=== PATIENT | female | born 1965 | race African-American/Black ===

== ENCOUNTER 2018-10-11 13:17 | Observation (INO) | payer OTHER ==
[2018-10-11 14:39] LABS: #Basophils 0.1 thou/uL (0.0-0.2); #Eosinphils 0.1 thou/uL (0.0-0.7); #Lymphocytes 3.2 thou/uL (1.20-3.40); #Monocytes 0.7 thou/uL (0.11-0.59); #Neutrophils 3.3 thou/uL (1.40-6.50); %Eosinophils 1.2 % (0.0-10.0); %Lymphocytes 43.1 % (21.0-51.0); %Monocytes 9.7 % (0.0-10.0); Hemoglobin 13.6 g/dL (12.0-16.0); Mean Corpuscular HGB CONC 32.7 g/dL (32.0-36.0); Mean Corpuscular Hemoglobin 30.9 pg (27.0-31.0); Mean Corpuscular Volume 94.6 fL (78.0-98.0); Mean Platelet Volume 9.2 fL (7.4-10.4); Platelet Count 201 thou/uL (130-400); RBC Distribution Width 12.9 % (11.5-14.5); Red Blood Cell (RBC) Count 4.41 mill/uL (4.20-5.40); White Blood Cell (WBC) Count 7.3 thou/uL (4.8-10.8)
[2018-10-11 15:01] LABS: ALT (SGPT) 14 U/L (8-55); AST (SGOT) 16 U/L (5-34); Albumin 4.2 g/dL (3.5-5.0); Alkaline Phosphatase 95 U/L (40-150); Anion Gap 11 mmol/L (10-20); BUN (Urea Nitrogen) 20 mg/dL (9.8-20.1); Bilirubin, Total 0.4 mg/dL (0.2-1.2); CK (CPK) 75 U/L (29-168); Calc. Creatinine Clearance 0 mL/min (70-130); Calcium 9.2 mg/dL (7.8-10.44); Carbon Dioxide 24 mmol/L (22-29); Chloride 110 mmol/L (98-107); Estimated GFR-MDRD 62; Globulin 2.8 g/dL (2.4-3.5); Glucose 94 mg/dL (70-105); Potassium 4.3 mmol/L (3.5-5.1); Sodium 141 mmol/L (136-145)
--- NOTE | 2018-10-11 15:04 | RAD ---
PORTABLE CHEST: Date: 10/11/18 HISTORY: Chest pain, shortness of breath. FINDINGS: Lung jimenez appear clear. Heart and mediastinum unremarkable. Vascular markings normal. IMPRESSION: No acute findings. POS: TPC
[2018-10-11] MEDS ORDERED: Nitroglycerin 0.4 MG TAB 1 EACH ONE (15:48)
[2018-10-11] MEDS ORDERED: Morphine 4 MG/ML VIAL ONE ×2 (16:34→17:59)
[2018-10-11] MEDS ORDERED: Morphine 2 MG/ML SYRINGE ONE (18:02)
[2018-10-11 18:25] LABS: Troponin I Less than 0.010 ng/mL (< 0.028)
[2018-10-11 19:23] VITALS: BMI 26.2
[2018-10-11] MEDS ORDERED: Acetaminophen 325 MG TAB PO SCH (19:45)
[2018-10-11] MEDS ORDERED: Acetaminophen 325 MG TAB PO PRN (20:15)
[2018-10-11] MEDS ORDERED: Nitroglycerin 0.4 MG TAB (25 Tab Bottle) PO PRN (20:15)
[2018-10-11] MEDS: HYDROcodone/Acetaminophen 10/325 mg Tablet PO PRN (20:45)
[2018-10-11] MEDS: Famotidine 20 MG TAB PO SCH (20:46)
[2018-10-11] MEDS: Pregabalin 75 MG CAP PO SCH (20:46)
[2018-10-11] MEDS: cloNIDine 0.1 MG TAB PO SCH (20:46)
[2018-10-11] MEDS: carBAMazepine 200 MG TAB PO SCH (20:47)
[2018-10-11] MEDS: Lisinopril 20 MG TAB PO SCH (20:47)
[2018-10-11] MEDS: Metoprolol Tartrate 100 MG TAB PO SCH (21:44)
[2018-10-11] MEDS: Ondansetron PF 4 MG/2 ML Vial IVP PRN (21:44)
[2018-10-11 21:58] LABS: Troponin I Less than 0.010 ng/mL (< 0.028)
[2018-10-11] MEDS ORDERED: Melatonin 3 MG TAB PO PRN (22:16)
[2018-10-12 01:02] LABS: Amphetamine Not Detected (NotDetected); Barbiturates Screen Not Detected (NotDetected); Benzodiazepine Screen Not Detected (NotDetected); Cocaine Metabolite Screen Not Detected (NotDetected); Medtox Reader # READER 4; Methadone Not Detected (NotDetected); Methamphetamine Not Detected (NotDetected); Opiate Screen Detected (NotDetected); Oxycodone Screen Not Detected (NotDetected); Phencyclidine (PCP) Not Detected (NotDetected); THC/Cannabinoid Screen Detected (NotDetected); Tricyclic Screen Not Detected (NotDetected)
[2018-10-12 01:03] LABS: Medtox Control Line Valid? VALID (VALID)
[2018-10-12] MEDS: Ondansetron PF 4 MG/2 ML Vial IVP PRN (03:37)
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
[2018-10-12] MEDS: HYDROcodone/Acetaminophen 10/325 mg Tablet PO PRN ×2 (05:25→12:48)
[2018-10-12] MEDS: Ondansetron ODT 4 MG TAB PO PRN ×2 (05:39→12:48)
[2018-10-12 06:21] LABS: #Basophils 0.1 thou/uL (0.0-0.2); #Eosinphils 0.1 thou/uL (0.0-0.7); #Lymphocytes 2.3 thou/uL (1.20-3.40); #Monocytes 0.5 thou/uL (0.11-0.59); #Neutrophils 3.4 thou/uL (1.40-6.50); %Basophils 1.5 % (0.0-1.0); %Eosinophils 1.4 % (0.0-10.0); %Lymphocytes 36.5 % (21.0-51.0); %Monocytes 7.4 % (0.0-10.0); %Neutrophils 53.2 % (42.0-75.0); Mean Corpuscular HGB CONC 32.2 g/dL (32.0-36.0); Mean Corpuscular Volume 96.1 fL (78.0-98.0); Mean Platelet Volume 8.9 fL (7.4-10.4); Platelet Count 188 thou/uL (130-400); Red Blood Cell (RBC) Count 4.51 mill/uL (4.20-5.40); White Blood Cell (WBC) Count 6.3 thou/uL (4.8-10.8)
[2018-10-12 06:36] LABS: Anion Gap 9 mmol/L (10-20); BUN (Urea Nitrogen) 17 mg/dL (9.8-20.1); Calc. Creatinine Clearance 85 mL/min (70-130); Calcium 9.4 mg/dL (7.8-10.44); Carbon Dioxide 25 mmol/L (22-29); Cardiac Risk 5.4 (Less than 4.5); Chloride 108 mmol/L (98-107); Cholesterol 212 mg/dl (< 200 Desired); Estimated GFR-MDRD 85; Glucose 90 mg/dL (70-105); HDL Cholesterol 39 mg/dL (>60 Neg Risk); LDL Cholesterol, Calculated 140 mg/dL; Potassium 4.2 mmol/L (3.5-5.1); Sodium 138 mmol/L (136-145); Triglycerides 166 mg/dL (Less than 150)
[2018-10-12] MEDS ORDERED: Enoxaparin Sodium 40 MG/0.4 ML SYRINGE SC SCH (09:00)
[2018-10-12 11:52] VITALS: TEMP 97.2
[2018-10-12] MEDS: cloNIDine 0.1 MG TAB PO SCH (11:53)
[2018-10-12] MEDS: carBAMazepine 200 MG TAB PO SCH (11:54)
[2018-10-12] MEDS: Famotidine 20 MG TAB PO SCH (11:54)
[2018-10-12] MEDS: Pregabalin 75 MG CAP PO SCH (11:55)
[2018-10-12] MEDS: Metoprolol Tartrate 100 MG TAB PO SCH (11:55)
[2018-10-12] MEDS: Lisinopril 20 MG TAB PO SCH (11:55)
--- NOTE | 2018-10-12 12:09 | NM ---
EXAM: CARDIAC SPECT HISTORY: Chest pain TECHNIQUE: A myocardial perfusion scan was performed using the single isotope 1 day protocol with carol ann hnetium 99m sestamibi. [10 mCi] was injected intravenously for the rest exam followed by 30 mCi for the stress study. Exercise stress was monitored and interpreted by Dr. Kilgore. FINDINGS: Homogeneous tracer distribution is seen in the myocardial segments on stress and rest image s without fixed or reversible defects. Gated SPECT LVEF: 73% Wall motion exam: Normal IMPRESSION: Normal myocardial perfusion scan
[2018-10-12 12:54] VITALS: BP 168/93
[2018-10-12] MEDS ORDERED: Regadenoson 0.4 MG/5 ML SYRINGE ONE (14:03)
--- NOTE | 2018-10-12 14:29 | PDOC.EVN ---
Event Note - Event Note Event Note: Ms. Saeed was seen along with Yessica Crawford PA-C. She was admitted with Chest pain. Stress test was negative. It was noted she has wheezing and rhonchi on exam, I also note the same on my exam. She is also a smoker, and currently has a cough productive of greenish phlem. Agree with antibiotics, and empiric treatment for bronchitis/possible COPD, with A combivent inhaler. She can be discharge with close follow-up and possible outpatient PFT's. She also has jagdish counseled on smoking cessation.
== END 2018-10-12 15:08 | disposition home or self-care (01) ==
LOC: ERS 13:17 → 2SW 19:01
PROVIDERS: ADMIT Internal Medicine; ATTEND Internal Medicine
DX: R07.9 Chest pain, unspecified (principal); I10 Essential (primary) hypertension; G40.909 Epilepsy, unspecified, not intractable, without status epilepticus; K21.9 Gastro-esophageal reflux disease without esophagitis; J40 Bronchitis, not specified as acute or chronic; F32.9 Major depressive disorder, single episode, unspecified; F41.9 Anxiety disorder, unspecified; F17.210 Nicotine dependence, cigarettes, uncomplicated; Z79.899 Other long term (current) drug therapy
CPT/HCPCS: 36415; 71045; 78452; 80048; 80053; 80061; 80306; 82550; 83880; 84484; 85025; 85379; 93005; 93017; 96372; 96374; 96375; 96376; A9500; G0378; J1650; J2270; J2405; J2785; Q0162

== ENCOUNTER 2019-08-21 18:31 | Observation (INO) | payer OTHER ==
[2019-08-21] MEDS ORDERED: Ondansetron PF 4 MG/2 ML Vial ONE ×2 (19:24→20:34)
[2019-08-21] MEDS ORDERED: hydrALAZINE 20 MG/ML VIAL ONE (19:24)
--- NOTE | 2019-08-21 19:58 | RAD ---
PA AND LATERAL OF THE CHEST: 08/21/19 INDICATION: History of seizures, cough and chest pain. COMPARISON: Prior single view of the chest dated 10/11/18. FINDINGS: Lungs are clear. Mild cardiomegaly is stable appearing. No acute osseous abnormality is evident. IMPRESSION: No acute cardiopulmonary abnormality. POS: BH
[2019-08-21] MEDS ORDERED: guaiFENesin/Codeine Phosphate 200 mg/20 mg 10 ml UD Cup PO SCH (20:00)
[2019-08-21 20:19] LABS: ALT (SGPT) 9 U/L (8-55); AST (SGOT) 16 U/L (5-34); Albumin 4.2 g/dL (3.5-5.0); Alkaline Phosphatase 97 U/L (40-110); Anion Gap 14 mmol/L (10-20); BUN (Urea Nitrogen) 8 mg/dL (9.8-20.1); Bilirubin, Total 0.4 mg/dL (0.2-1.2); CK (CPK) 110 U/L (29-168); Calc. Creatinine Clearance 0 mL/min (70-130); Calcium 8.9 mg/dL (7.8-10.44); Carbon Dioxide 22 mmol/L (22-29); Chloride 107 mmol/L (98-107); Estimated GFR-MDRD 76; Globulin 3.3 g/dL (2.4-3.5); Glucose 101 mg/dL (70-105); Potassium 4.3 mmol/L (3.5-5.1); Protein, Total 7.5 g/dL (6.0-8.3); Sodium 139 mmol/L (136-145)
[2019-08-21] MEDS ORDERED: Nitroglycerin 2% Ointment 1 INCH/1 GM Packet ONE (20:26)
[2019-08-21 20:31] LABS: Hemoglobin 13.6 g/dL (12.0-16.0); Mean Corpuscular HGB CONC 33.1 g/dL (32.0-36.0); Mean Corpuscular Hemoglobin 32.1 pg (27.0-31.0); Mean Corpuscular Volume 96.9 fL (78.0-98.0); Mean Platelet Volume 9.8 fL (7.4-10.4); Platelet Count 197 thou/uL (130-400); RBC Distribution Width 12.4 % (11.5-14.5); Red Blood Cell (RBC) Count 4.23 mill/uL (4.20-5.40); White Blood Cell (WBC) Count 8.2 thou/uL (4.8-10.8)
[2019-08-21 20:45] LABS: #Basophils 0.1 thou/uL (0.0-0.2); #Eosinphils 0.1 thou/uL (0.0-0.7); #Lymphocytes 2.8 thou/uL (1.20-3.40); #Monocytes 0.5 thou/uL (0.11-0.59); #Neutrophils 4.8 thou/uL (1.40-6.50); %Basophils 1.4 % (0.0-1.0); %Eosinophils 0.8 % (0.0-10.0); %Lymphocytes 33.6 % (21.0-51.0); %Monocytes 5.8 % (0.0-10.0); %Neutrophils 58.5 % (42.0-75.0)
[2019-08-21] MEDS ORDERED: Acetaminophen 500 MG TAB ONE (21:04)
[2019-08-21] MEDS ORDERED: Promethazine HCl 25 MG/ML VIAL ONE (21:37)
--- NOTE | 2019-08-21 21:40 | CT ---
CT OF THE BRAIN WITHOUT CONTRAST: 08/21/19 INDICATION: History of seizures with headache and nausea. COMPARISON: Prior exam dated 12/13/14. FINDINGS: No acute infarct, hemorrhage, or hydrocephalus is present. Septum pellucidum and third ventricle are midline. Mastoid air cells and paranasal sinuses are clear. IMPRESSION: No acute intracranial abnormality. POS: BH
[2019-08-22 00:05] LABS: Carbamazepine-Tegretol 5.8 ug/mL (4.0-12.0)
--- NOTE | 2019-08-22 00:18 | PDOC.HHP ---
Hospitalist HPI - History of Present Illness Seizures History of Present Illness: Patient with PMH of HTN and seizure disorder presents to ED for evaluation of seizure after stopping her Tegretol for about 3 days. During my assessment she is somewhat somnolent and history is somewhat limited. Tells me that she has been out of her seizure meds for several days and does not have a refill until . She does not recall seizure event. Currently refers headache, generalized body aches/soreness, and left sided rib cage pain. Denies any recent illness or sick contacts. No fever or chills referred. Does mention having mild non productive cough. In the ED she is noted to have elevated BP but states they are currently adjusting her meds (does not recall the names). Initial ED evaluation with no concerning lab findings. CT head is negative. Chest imaging without acute pathology. VS with elevated BP in the 180s systolic. No hypoxia or fever. Hospitalist ROS - Review of Systems Constitutional: reports: weakness, malaise. denies: fever, chills, sweats Eyes: denies: pain, vision change ENT: denies: ear pain, nose pain, nose discharge, nose congestion Respiratory: reports: cough, dry. denies: shortness of breath, SOB with excertion, pleuritic pain, sputum Cardiovascular: reports: chest pain (Clearly reproducible on exam to left rib cage). denies: palpitations, orthopnea, paroxysmal noc. dyspnea Gastrointestinal: denies: nausea, vomiting, abdominal pain, diarrhea Genitourinary: denies: dysuria, frequency, incontinence Musculoskeletal: reports: other (Generalized body aches/soreness) Skin: denies: rash Neurological: reports: weakness, confusion, seizures. denies: numbness, incoordination, change in speech - Exam General Appearance: NAD General - other findings: Somewhat somnolent Eye: PERRL, anicteric sclera ENT: normocephalic atraumatic Neck: supple, no JVD Heart: RRR, no murmur, no gallops Respiratory: CTAB, no wheezes, no rales, no ronchi Gastrointestinal: soft, non-tender, non-distended, normal bowel sounds Extremities: no cyanosis, no clubbing, no edema Extremities - other findings: Reproducible chest pain to left rib cage under breast Skin: normal turgor Neurological: cranial nerve grossly intact Musculoskeletal: normal tone Psychiatric: A&O x 3, oriented to person Hospitalist Results - Labs Result Diagrams: 08/21/19 19:55 08/21/19 19:55 Lab results: WBC 8.2 thou/uL (4.8-10.8) 08/21/19 19:55 Hgb 13.6 g/dL (12.0-16.0) 08/21/19 19:55 Hct 41.0 % (36.0-47.0) 08/21/19 19:55 MCV 96.9 fL (78.0-98.0) 08/21/19 19:55 Plt Count 197 thou/uL (130-400) 08/21/19 19:55 Neutrophils % 58.5 % (42.0-75.0) 08/21/19 19:55 Sodium 139 mmol/L (136-145) 08/21/19 19:55 Potassium 4.3 mmol/L (3.5-5.1) 08/21/19 19:55 Chloride 107 mmol/L (98-107) 08/21/19 19:55 Carbon Dioxide 22 mmol/L (22-29) 08/21/19 19:55 BUN 8 mg/dL (9.8-20.1) L 08/21/19 19:55 Creatinine 0.93 mg/dL (0.6-1.1) 08/21/19 19:55 Glucose 101 mg/dL (70-105) 08/21/19 19:55 Calcium 8.9 mg/dL (7.8-10.44) 08/21/19 19:55 Total Bilirubin 0.4 mg/dL (0.2-1.2) 08/21/19 19:55 AST 16 U/L (5-34) 08/21/19 19:55 ALT 9 U/L (8-55) 08/21/19 19:55 Alkaline Phosphatase 97 U/L (40-110) 08/21/19 19:55 Creatine Kinase 110 U/L (29-168) 08/21/19 19:55 Troponin I Less than 0.010 ng/mL (< 0.028) 08/21/19 19:55 Serum Total Protein 7.5 g/dL (6.0-8.3) 08/21/19 19:55 Albumin 4.2 g/dL (3.5-5.0) 08/21/19 19:55 - Radiology Interpretation CT scan - head Status: image reviewed by me (Negative for acute pathology) Hospitalist H&P A/P - Plan Plan: Problem List 1. Seizure disorder 2. Uncontrolled hypertension 3. Musculoskeletal chest pain Assessment and Plan 1. Seizure disorder - admit for observation - seizure event in setting of stopping medication - will need refill prior to discharge - continue with tegretol - continue with seizure/fall precautions 2. Uncontrolled hypertension - resume home medications - verify meds once med rec completed - IV hydralazine PRN 3. Musculoskeletal chest pain - continue with Tylenol and Percocet PRN - PT/OT DVT PPX: Lovenox FULL CODE
[2019-08-22] MEDS ORDERED: Senokot S 8.6-50 MG TAB PO PRN (01:02)
[2019-08-22] MEDS ORDERED: HYDROcodone/Acetaminophen 5/325 mg Tablet PO PRN (01:02)
[2019-08-22] MEDS ORDERED: Lorazepam 2 MG/ML VIAL SLOW IVP PRN (01:02)
[2019-08-22] MEDS ORDERED: Acetaminophen 325 MG TAB ONE (01:39)
[2019-08-22] MEDS: Acetaminophen 325 MG TAB PO PRN ×2 (01:42→15:19)
[2019-08-22] MEDS ORDERED: HYDROcodone/Acetaminophen 5/325 mg Tablet ONE (04:32)
[2019-08-22 07:49] LABS: #Basophils 0.1 thou/uL (0.0-0.2); #Lymphocytes 2.2 thou/uL (1.20-3.40); #Monocytes 0.4 thou/uL (0.11-0.59); #Neutrophils 5.6 thou/uL (1.40-6.50); %Eosinophils 0.2 % (0.0-10.0); %Lymphocytes 26.4 % (21.0-51.0); %Monocytes 5.3 % (0.0-10.0); %Neutrophils 67.1 % (42.0-75.0); Hemoglobin 12.8 g/dL (12.0-16.0); Mean Corpuscular HGB CONC 32.5 g/dL (32.0-36.0); Mean Corpuscular Hemoglobin 31.5 pg (27.0-31.0); Mean Corpuscular Volume 96.7 fL (78.0-98.0); Mean Platelet Volume 9.5 fL (7.4-10.4); Platelet Count 196 thou/uL (130-400); RBC Distribution Width 12.5 % (11.5-14.5); Red Blood Cell (RBC) Count 4.07 mill/uL (4.20-5.40); White Blood Cell (WBC) Count 8.4 thou/uL (4.8-10.8)
[2019-08-22 08:08] LABS: Anion Gap 13 mmol/L (10-20); BUN (Urea Nitrogen) 7 mg/dL (9.8-20.1); Calc. Creatinine Clearance 0 mL/min (70-130); Calcium 8.9 mg/dL (7.8-10.44); Carbon Dioxide 22 mmol/L (22-29); Chloride 106 mmol/L (98-107); Estimated GFR-MDRD 87; Glucose 107 mg/dL (70-105); Potassium 3.5 mmol/L (3.5-5.1); Sodium 137 mmol/L (136-145)
[2019-08-22] MEDS ORDERED: Ondansetron PF 4 MG/2 ML Vial ONE (08:18)
[2019-08-22] MEDS: Ondansetron PF 4 MG/2 ML Vial IVP PRN ×2 (08:25→15:18)
[2019-08-22] MEDS ORDERED: Metoprolol Tartrate 100 MG TAB PO SCH (09:00)
[2019-08-22] MEDS ORDERED: cloNIDine 0.1 MG TAB PO SCH (09:00)
[2019-08-22] MEDS ORDERED: Lisinopril 20 MG TAB PO SCH (09:00)
[2019-08-22] MEDS ORDERED: carBAMazepine 200 MG TAB PO SCH (09:00)
[2019-08-22] MEDS ORDERED: Enoxaparin Sodium 40 MG/0.4 ML SYRINGE SC SCH (09:00)
[2019-08-22] MEDS ORDERED: Pregabalin 75 MG CAP PO SCH (09:00)
[2019-08-22] MEDS ORDERED: carBAMazepine 100 mg Chewable Tablet PO SCH (11:15)
[2019-08-22] MEDS ORDERED: hydrALAZINE 20 MG/ML VIAL ONE (11:49)
--- NOTE | 2019-08-22 11:52 | CON ---
NEUROLOGY CONSULTATION DATE OF CONSULTATION: 08/22/2019 REASON FOR CONSULTATION: Breakthrough seizure. HISTORY OF PRESENT ILLNESS: Ms. Jessica Saeed is a 54-year-old female with history significant for hypertension and seizure disorder, presented to the emergency room for breakthrough seizure. According to the patient, she ran out of her Tegretol for three days and then ran out of her medications for 3 to 4 days and she does not have a refill till 08/26/2019. The patient has no recollection of the seizures. When she arrived to the emergency room, she does complain of headache, generalized body aches, and left-sided rib pain. There is a concern about chest pain, but the patient denies any recent illness, nausea, vomiting, focal weakness, focal paresthesias, vertigo, headache, but does complain of chest pain. In the emergency room, head CT was done, which was negative. Chest x-ray did not reveal any acute pathology. She does have high blood pressure. REVIEW OF SYSTEMS: All 14 systems were reviewed and were negative except the negative and positive as mentioned in the HPI. PAST MEDICAL HISTORY: Hypertension, seizure disorder. PAST SURGICAL HISTORY: None. SOCIAL HISTORY: The patient lives at home. Denies smoking, alcohol, or illegal drug use. FAMILY HISTORY: No family history of seizures. ALLERGIES: No known drug allergies Hospitalist ROS - Review of Systems Constitutional: reports: weakness, malaise. denies: fever, chills, sweats Eyes: denies: pain, vision change ENT: denies: ear pain, nose pain, nose discharge, nose congestion Respiratory: reports: cough, dry. denies: shortness of breath, SOB with excertion, pleuritic pain, sputum Cardiovascular: reports: chest pain (Clearly reproducible on exam to left rib cage). denies: palpitations, orthopnea, paroxysmal noc. dyspnea Gastrointestinal: denies: nausea, vomiting, abdominal pain, diarrhea Genitourinary: denies: dysuria, frequency, incontinence Musculoskeletal: reports: other (Generalized body aches/soreness) Skin: denies: rash Neurological: reports: weakness, confusion, seizures. denies: numbness, incoordination, change in speech -Physical Exam General Appearance: NAD General - other findings: Somewhat somnolent Eye: PERRL, anicteric sclera ENT: normocephalic atraumatic Neck: supple, no JVD Heart: RRR, no murmur, no gallops Respiratory: CTAB, no wheezes, no rales, no ronchi Gastrointestinal: soft, non-tender, non-distended, normal bowel sounds Extremities: no cyanosis, no clubbing, no edema Extremities - other findings: Reproducible chest pain to left rib cage under breast Skin: normal turgor Neurological: Mental status, the patient is alert and oriented to person, place , and time. Speech is clear. Fund of knowledge appropriate. Recent and remote memory intact. Cranial nerves 2 through 12 intact. Motor muscle tone and bulk are normal. Strength 5/5 bilaterally. Sensory intact. Cerebellar finger-nose testing intact. Reflexes symmetric bilaterally. Gait: deferred due to patient's safety reason. 08/21/19 19:55 Lab results: WBC 8.2 thou/uL (4.8-10.8) 08/21/19 19:55 Hgb 13.6 g/dL (12.0-16.0) 08/21/19 19:55 Hct 41.0 % (36.0-47.0) 08/21/19 19:55 MCV 96.9 fL (78.0-98.0) 08/21/19 19:55 Plt Count 197 thou/uL (130-400) 08/21/19 19:55 Neutrophils % 58.5 % (42.0-75.0) 08/21/19 19:55 Sodium 139 mmol/L (136-145) 08/21/19 19:55 Potassium 4.3 mmol/L (3.5-5.1) 08/21/19 19:55 Chloride 107 mmol/L (98-107) 08/21/19 19:55 Carbon Dioxide 22 mmol/L (22-29) 08/21/19 19:55 BUN 8 mg/dL (9.8-20.1) L 08/21/19 19:55 Creatinine 0.93 mg/dL (0.6-1.1) 08/21/19 19:55 Glucose 101 mg/dL (70-105) 08/21/19 19:55 Calcium 8.9 mg/dL (7.8-10.44) 08/21/19 19:55 Total Bilirubin 0.4 mg/dL (0.2-1.2) 08/21/19 19:55 AST 16 U/L (5-34) 08/21/19 19:55 ALT 9 U/L (8-55) 08/21/19 19:55 Alkaline Phosphatase 97 U/L (40-110) 08/21/19 19:55 Creatine Kinase 110 U/L (29-168) 08/21/19 19:55 Troponin I Less than 0.010 ng/mL (< 0.028) 08/21/19 19:55 Serum Total Protein 7.5 g/dL (6.0-8.3) 08/21/19 19:55 Albumin 4.2 g/dL (3.5-5.0) 08/21/19 19:55 - Radiology Interpretation CT scan - head Status: image reviewed by me (Negative for acute pathology) LABORATORY DATA: CBC and CMP reviewed which were essentially unremarkable. I reviewed the head CT which was also negative for acute intracranial pathology. ASSESSMENT AND PLAN: Ms. Jessica Saeed is consulted for seizure disorder. She does have uncontrolled hypertension and chest pain . The patient has a known history of seizure disorder, but ran out of her medications. She does not have a neurologist, so she should follow up with an outpatient neurologist on discharge. She takes Tegretol 200 mg twice daily. Consider giving an extra dose of 200 mg of 400 mg p.o. now and then 200 mg p.o. b.i.d. Check Tegretol level in a.m. along with CBC and CMP. Neuro checks every 4 hours. Observe seizure precautions. Continue home medications. Continue medical management per primary team including chest pain and hypertension. Plan discussed in detail with the patient and also with the primary attending, Dr. Lockhart and the patient. Job ID: [id number] MTDD
[2019-08-22] MEDS: hydrALAZINE 20 MG/ML VIAL SLOW IVP PRN ×2 (11:55→15:18)
[2019-08-22 11:57] VITALS: BP 152/121
== END 2019-08-22 12:12 | disposition short-term general hospital (02) ==
LOC: ERS 18:31 → ERHOLD 08-22 00:07
PROVIDERS: ADMIT Internal Medicine; ATTEND Internal Medicine
DX: G40.909 Epilepsy, unspecified, not intractable, without status epilepticus (principal); I10 Essential (primary) hypertension; R07.9 Chest pain, unspecified; Z79.899 Other long term (current) drug therapy
CPT/HCPCS: 36415; 70450; 71046; 80048; 80053; 80156; 82550; 84484; 85025; 93005; J0360; J2405; J2550

== ENCOUNTER 2019-12-17 04:21 | Emergency (ER) | payer OTHER ==
[2019-12-17] MEDS ORDERED: Ondansetron PF 4 MG/2 ML Vial ONE (04:39)
[2019-12-17 05:18] LABS: #Basophils 0.1 thou/uL (0.0-0.2); #Lymphocytes 1.8 thou/uL (1.20-3.40); #Monocytes 0.5 thou/uL (0.11-0.59); #Neutrophils 5.2 thou/uL (1.40-6.50); %Basophils 0.7 % (0.0-1.0); %Eosinophils 0.6 % (0.0-10.0); %Lymphocytes 23.8 % (21.0-51.0); %Monocytes 6.4 % (0.0-10.0); %Neutrophils 68.5 % (42.0-75.0); Hemoglobin 13.2 g/dL (12.0-16.0); Mean Corpuscular HGB CONC 32.4 g/dL (32.0-36.0); Mean Corpuscular Hemoglobin 31.6 pg (27.0-31.0); Mean Corpuscular Volume 97.7 fL (78.0-98.0); Mean Platelet Volume 8.3 fL (7.4-10.4); Platelet Count 235 thou/uL (130-400); RBC Distribution Width 12.8 % (11.5-14.5); Red Blood Cell (RBC) Count 4.17 mill/uL (4.20-5.40); White Blood Cell (WBC) Count 7.6 thou/uL (4.8-10.8)
[2019-12-17] MEDS ORDERED: Ketorolac Tromethamine 30 MG/ML VIAL ONE (05:25)
[2019-12-17] MEDS ORDERED: carBAMazepine 200 MG TAB PO SCH ×2 (05:30→06:00)
[2019-12-17 05:33] LABS: ALT (SGPT) 9 U/L (8-55); AST (SGOT) 14 U/L (5-34); Albumin 3.9 g/dL (3.5-5.0); Alkaline Phosphatase 88 U/L (40-110); Anion Gap 10 mmol/L (10-20); BUN (Urea Nitrogen) 12 mg/dL (9.8-20.1); Bilirubin, Total 0.5 mg/dL (0.2-1.2); Calc. Creatinine Clearance 0 mL/min (70-130); Calcium 8.6 mg/dL (7.8-10.44); Carbon Dioxide 24 mmol/L (22-29); Chloride 107 mmol/L (98-107); Estimated GFR-MDRD 66; Globulin 2.8 g/dL (2.4-3.5); Glucose 103 mg/dL (70-105); Lipase 10 U/L (8-78); Potassium 3.7 mmol/L (3.5-5.1); Protein, Total 6.7 g/dL (6.0-8.3); Sodium 137 mmol/L (136-145)
[2019-12-17 06:20] LABS: Bilirubin Negative (Negative); Blood, Urine Negative (Negative); Clarity Clear (Clear); Glucose, Urine (Dipstick) Normal (Negative); Ketone, Urine Negative (Negative); Leukocyte Negative Leu/uL (Negative); Nitrite Negative (Negative); Protein, Urine (Dipstick) 20 mg/dL (Neg-Trace); Specific Gravity, Urine 1.027 (1.002-1.036)
--- NOTE | 2019-12-21 10:37 | EKG ---
Test Reason : Blood Pressure : / mmHG Vent. Rate : 062 BPM Atrial Rate : 062 BPM P-R Int : 136 ms QRS Dur : 076 ms QT Int : 448 ms P-R-T Axes : 046 011 215 degrees QTc Int : 454 ms Normal sinus rhythm Possible Left atrial enlargement Left ventricular hypertrophy Abnormal ECG Confirmed by MEGHNA HATFIELD ([id number]), rewrite editor GILDARDO KAT ([id number]) on 12/21/2019 10:37:10 AM Referred By: Confirmed By:MEGHNA HATFIELD
== END 2019-12-17 07:30 | disposition home or self-care (01) ==
LOC: ERS 04:21
DX: G40.909 Epilepsy, unspecified, not intractable, without status epilepticus (principal); R11.2 Nausea with vomiting, unspecified; I10 Essential (primary) hypertension; J44.9 Chronic obstructive pulmonary disease, unspecified; F41.9 Anxiety disorder, unspecified; F17.210 Nicotine dependence, cigarettes, uncomplicated; Z79.899 Other long term (current) drug therapy
CPT/HCPCS: 36415; 80053; 81003; 83690; 85025; 93005; 96374; 96375; J1885; J2405

== ENCOUNTER 2020-05-30 20:09 | Emergency (ER) | payer OTHER ==
[~2020-05-30 20:09] MED LIST: Iopamidol-370 76% 500 ML 1 ML ONE
[2020-05-30] MEDS ORDERED: Morphine 4 MG/ML VIAL ONE ×2 (20:29→21:36)
[2020-05-30] MEDS ORDERED: Ondansetron PF 4 MG/2 ML Vial ONE ×2 (20:29→22:18)
[2020-05-30 21:10] LABS: #Basophils 0.2 thou/uL (0.0-0.2); #Lymphocytes 2.8 thou/uL (1.20-3.40); #Monocytes 0.6 thou/uL (0.11-0.59); #Neutrophils 5.4 thou/uL (1.40-6.50); %Basophils 1.7 % (0.0-1.0); %Eosinophils 0.4 % (0.0-10.0); %Lymphocytes 31.6 % (21.0-51.0); %Monocytes 6.2 % (0.0-10.0); %Neutrophils 60.1 % (42.0-75.0); Mean Corpuscular HGB CONC 32.5 g/dL (32.0-36.0); Mean Corpuscular Hemoglobin 31.5 pg (27.0-31.0); Mean Corpuscular Volume 96.7 fL (78.0-98.0); Mean Platelet Volume 8.2 fL (7.4-10.4); Platelet Count 265 thou/uL (130-400); RBC Distribution Width 13.7 % (11.5-14.5); Red Blood Cell (RBC) Count 4.46 mill/uL (4.20-5.40)
[2020-05-30 21:23] LABS: Bacteria/HPF 3+ HPF (None Seen); Bilirubin Negative (Negative); Blood, Urine Negative (Negative); Clarity Clear (Clear); Glucose, Urine (Dipstick) Normal (Negative); Ketone, Urine Negative (Negative); Leukocyte 75 Leu/uL (Negative); Nitrite 2+ (Negative); Protein, Urine (Dipstick) Negative (Neg-Trace); RBC/HPF 0-3 HPF (0-3); Specific Gravity, Urine 1.013 (1.002-1.036); Urobilinogen Normal mg/dL (Less than 2)
[2020-05-30 21:32] LABS: ALT (SGPT) 11 U/L (8-55); AST (SGOT) 17 U/L (5-34); Albumin 4.3 g/dL (3.5-5.0); Alkaline Phosphatase 102 U/L (40-110); Anion Gap 20 mmol/L (10-20); BUN (Urea Nitrogen) 11 mg/dL (9.8-20.1); Bilirubin, Total 0.4 mg/dL (0.2-1.2); Calc. Creatinine Clearance 0 mL/min (70-130); Calcium 9.4 mg/dL (7.8-10.44); Carbon Dioxide 17 mmol/L (22-29); Chloride 107 mmol/L (98-107); Globulin 3.1 g/dL (2.4-3.5); Glucose 104 mg/dL (70-105); Lipase 11 U/L (8-78); Protein, Total 7.4 g/dL (6.0-8.3); Sodium 139 mmol/L (136-145)
[2020-05-30] MEDS ORDERED: cloNIDine 0.1 MG TAB ONE (22:18)
[2020-05-30] MEDS ORDERED: Lisinopril 10 MG TAB ONE ×2 (22:18→22:25)
[2020-05-31] MEDS ORDERED: Ondansetron ODT 4 MG TAB ONE (01:45)
== END 2020-05-31 01:49 | disposition home or self-care (01) ==
LOC: ERS 20:09
DX: R10.9 Unspecified abdominal pain (principal); R11.2 Nausea with vomiting, unspecified; I10 Essential (primary) hypertension; J44.9 Chronic obstructive pulmonary disease, unspecified; F17.210 Nicotine dependence, cigarettes, uncomplicated; Z79.899 Other long term (current) drug therapy
CPT/HCPCS: 74177; 80053; 81003; 81015; 83690; 84484; 85025; 93005; J2270; J2405; Q0162

== ENCOUNTER 2020-05-31 04:33 | Emergency (ER) | payer OTHER ==
[2020-05-31] MEDS ORDERED: Ondansetron ODT 4 MG TAB ONE (05:16)
== END 2020-05-31 05:26 | disposition home or self-care (01) ==
LOC: ERS 04:33
DX: R11.2 Nausea with vomiting, unspecified (principal); I10 Essential (primary) hypertension; J44.9 Chronic obstructive pulmonary disease, unspecified; F17.210 Nicotine dependence, cigarettes, uncomplicated; R10.9 Unspecified abdominal pain; Z79.899 Other long term (current) drug therapy
CPT/HCPCS: 74177; 80053; 81003; 81015; 83690; 84484; 85025; 93005; 96361; 96374; 96375; 96376; 99281; J2270; J2405; Q0162; Q9967

== ENCOUNTER 2020-06-27 22:39 | Emergency (ER) | payer OTHER ==
[2020-06-27] MEDS ORDERED: hydrALAZINE 20 MG/ML VIAL ONE (23:25)
[2020-06-27 23:30] LABS: #Basophils 0.1 thou/uL (0.0-0.2); #Eosinphils 0.1 thou/uL (0.0-0.7); #Monocytes 0.6 thou/uL (0.11-0.59); #Neutrophils 3.5 thou/uL (1.40-6.50); %Basophils 1.7 % (0.0-1.0); %Eosinophils 1.8 % (0.0-10.0); %Lymphocytes 47.3 % (21.0-51.0); %Monocytes 7.3 % (0.0-10.0); Hemoglobin 11.7 g/dL (12.0-16.0); Mean Corpuscular HGB CONC 32.5 g/dL (32.0-36.0); Mean Corpuscular Hemoglobin 30.5 pg (27.0-31.0); Mean Corpuscular Volume 93.8 fL (78.0-98.0); Platelet Count 243 thou/uL (130-400); RBC Distribution Width 12.6 % (11.5-14.5); Red Blood Cell (RBC) Count 3.82 mill/uL (4.20-5.40); White Blood Cell (WBC) Count 8.4 thou/uL (4.8-10.8)
[2020-06-27] MEDS ORDERED: Lidocaine Viscous Sol 2% 15 ml UD Cup ONE (23:30)
[2020-06-27] MEDS ORDERED: Mag-Al 1200 mg/1200 mg/30 ML UDCUP ONE (23:30)
[2020-06-27 23:54] LABS: ALT (SGPT) 11 U/L (8-55); AST (SGOT) 17 U/L (5-34); Albumin 3.7 g/dL (3.5-5.0); Alkaline Phosphatase 98 U/L (40-110); Anion Gap 16 mmol/L (10-20); BUN (Urea Nitrogen) 27 mg/dL (9.8-20.1); Bilirubin, Total 0.4 mg/dL (0.2-1.2); Calc. Creatinine Clearance 0 mL/min (70-130); Calcium 8.3 mg/dL (7.8-10.44); Carbon Dioxide 17 mmol/L (22-29); Chloride 101 mmol/L (98-107); Globulin 2.8 g/dL (2.4-3.5); Glucose 92 mg/dL (70-105); Lipase 35 U/L (8-78); Potassium 4.4 mmol/L (3.5-5.1); Protein, Total 6.5 g/dL (6.0-8.3); Sodium 130 mmol/L (136-145)
== END 2020-06-28 00:55 | disposition home or self-care (01) ==
LOC: ERS 22:39
DX: R07.89 Other chest pain (principal); I10 Essential (primary) hypertension; J44.9 Chronic obstructive pulmonary disease, unspecified; F17.210 Nicotine dependence, cigarettes, uncomplicated
CPT/HCPCS: 36415; 71045; 80053; 83690; 84484; 85025; 85379; 93005; 96374; J0360

== ENCOUNTER 2020-06-28 02:35 | Emergency (ER) | payer OTHER | END 2020-06-28 03:52 | disposition home or self-care (01) | LOC: ERS 02:35 | DX: F41.9 Anxiety disorder, unspecified (principal); I10 Essential (primary) hypertension; J44.9 Chronic obstructive pulmonary disease, unspecified; F17.210 Nicotine dependence, cigarettes, uncomplicated; Z79.899 Other long term (current) drug therapy | CPT/HCPCS: 99281 ==

== ENCOUNTER 2021-08-08 21:54 | Emergency (ER) | payer MEDICAID, OTHER ==
[2021-08-08] MEDS ORDERED: cloNIDine 0.1 MG TAB ONE (22:33)
[2021-08-08] MEDS ORDERED: hydrALAZINE 20 MG/ML VIAL ONE (22:34)
[2021-08-08] MEDS ORDERED: Promethazine HCl 12.5 MG in Sodium Chloride 0.9% 50 ML IVPB SCH (22:45)
[2021-08-08 23:03] LABS: #Basophils 0.1 thou/uL (0.0-0.2); #Eosinphils 0.1 thou/uL (0.0-0.7); #Lymphocytes 1.5 thou/uL (1.20-3.40); #Monocytes 0.4 thou/uL (0.11-0.59); #Neutrophils 5.8 thou/uL (1.40-6.50); %Basophils 0.9 % (0.0-1.0); %Eosinophils 1.5 % (0.0-10.0); %Lymphocytes 18.8 % (21.0-51.0); %Monocytes 4.5 % (0.0-10.0); %Neutrophils 74.3 % (42.0-75.0); Hemoglobin 13.2 g/dL (12.0-16.0); Mean Corpuscular HGB CONC 33.1 g/dL (32.0-36.0); Mean Corpuscular Hemoglobin 31.7 pg (27.0-31.0); Mean Corpuscular Volume 95.7 fL (78.0-98.0); Platelet Count 213 thou/uL (130-400); RBC Distribution Width 12.7 % (11.5-14.5); Red Blood Cell (RBC) Count 4.16 mill/uL (4.20-5.40); White Blood Cell (WBC) Count 7.9 thou/uL (4.8-10.8)
[2021-08-08 23:13] LABS: ALT (SGPT) 11 U/L (8-55); AST (SGOT) 18 U/L (5-34); Albumin 4.2 g/dL (3.5-5.0); Alkaline Phosphatase 95 U/L (40-110); Anion Gap 16 mmol/L (10-20); BUN (Urea Nitrogen) 15 mg/dL (9.8-20.1); Bilirubin, Total 0.3 mg/dL (0.2-1.2); Calc. Creatinine Clearance 0 mL/min (70-130); Carbon Dioxide 23 mmol/L (22-29); Chloride 103 mmol/L (98-107); Globulin 3.1 g/dL (2.4-3.5); Glucose 126 mg/dL (70-105); Potassium 3.6 mmol/L (3.5-5.1); Protein, Total 7.3 g/dL (6.0-8.3); Sodium 138 mmol/L (136-145)
[2021-08-08 23:55] LABS: Bilirubin Negative (Negative); Blood, Urine Negative (Negative); Clarity Clear (Clear); Glucose, Urine (Dipstick) Normal (Negative); Ketone, Urine Trace mg/dL (Negative); Leukocyte Negative Leu/uL (Negative); Nitrite Negative (Negative); Protein, Urine (Dipstick) Negative (Neg-Trace); Specific Gravity, Urine 1.013 (1.002-1.036); Urobilinogen Normal mg/dL (Less than 2); pH, Urine 6.5 (5.0-9.0)
== END 2021-08-09 01:26 | disposition home or self-care (01) ==
LOC: ERS 21:54
DX: I10 Essential (primary) hypertension (principal); I49.8 Other specified cardiac arrhythmias; J44.9 Chronic obstructive pulmonary disease, unspecified; G62.9 Polyneuropathy, unspecified; F17.210 Nicotine dependence, cigarettes, uncomplicated; Z79.899 Other long term (current) drug therapy
CPT/HCPCS: 36415; 80053; 81003; 85025; 93005; 96374; 96375; J0360; J2550

== ENCOUNTER 2022-02-26 23:48 | Observation (INO) | payer MEDICAID, OTHER ==
[2022-02-27] MEDS ORDERED: Nitroglycerin 2% Ointment 1 INCH/1 GM Packet ONE (00:41)
[2022-02-27] MEDS ORDERED: Pantoprazole 40 MG VIAL ONE (00:41)
[2022-02-27] MEDS ORDERED: Ondansetron PF 4 MG/2 ML Vial ONE (00:41)
[2022-02-27] MEDS ORDERED: Aspirin Chewable 81 MG TAB ONE (00:42)
[2022-02-27 01:01] LABS: #Basophils 0.1 thou/uL (0.0-0.2); #Eosinphils 0.1 thou/uL (0.0-0.7); #Lymphocytes 2.3 thou/uL (1.20-3.40); #Monocytes 0.5 thou/uL (0.11-0.59); #Neutrophils 5.6 thou/uL (1.40-6.50); %Basophils 0.8 % (0.0-1.0); %Eosinophils 1.5 % (0.0-10.0); %Lymphocytes 26.8 % (21.0-51.0); %Monocytes 5.8 % (0.0-10.0); %Neutrophils 65.1 % (42.0-75.0); Hemoglobin 13.3 g/dL (12.0-16.0); Mean Corpuscular HGB CONC 33.7 g/dL (32.0-36.0); Mean Corpuscular Hemoglobin 31.4 pg (27.0-31.0); Mean Corpuscular Volume 93.2 fl (78.0-98.0); Platelet Count 218 10x3/uL (130-400); RBC Distribution Width 13.3 % (11.5-14.5); Red Blood Cell (RBC) Count 4.24 mill/uL (4.20-5.40); White Blood Cell (WBC) Count 8.6 10x3/uL (4.8-10.8)
[2022-02-27 01:22] LABS: ALT (SGPT) 12 U/L (8-55); AST (SGOT) 16 U/L (5-34); Albumin 4.7 g/dL (3.5-5.0); Alkaline Phosphatase 110 U/L (40-110); Anion Gap 17 mmol/L (10-20); BUN (Urea Nitrogen) 18 mg/dL (9.8-20.1); Bilirubin, Total 0.6 mg/dL (0.2-1.2); Calc. Creatinine Clearance 0 mL/min (70-130); Calcium 10.1 mg/dL (7.8-10.44); Carbon Dioxide 22 mmol/L (22-29); Chloride 96 mmol/L (98-107); Estimated GFR 59; Globulin 3.4 g/dL (2.4-3.5); Glucose 140 mg/dL (70-105); Potassium 3.6 mmol/L (3.5-5.1); Protein, Total 8.1 g/dL (6.0-8.3); Sodium 131 mmol/L (136-145)
[2022-02-27] MEDS ORDERED: Morphine 4 MG/ML VIAL ONE (01:28)
[2022-02-27] MEDS ORDERED: Acetaminophen 325 MG TAB PO PRN (02:20)
[2022-02-27 02:55] LABS: #Basophils 0.1 thou/uL (0.0-0.2); #Eosinphils 0.1 thou/uL (0.0-0.7); #Lymphocytes 2.1 thou/uL (1.20-3.40); #Monocytes 0.6 thou/uL (0.11-0.59); #Neutrophils 5.2 thou/uL (1.40-6.50); %Basophils 1.4 % (0.0-1.0); %Eosinophils 1.5 % (0.0-10.0); %Lymphocytes 25.8 % (21.0-51.0); %Monocytes 7.2 % (0.0-10.0); %Neutrophils 64.1 % (42.0-75.0); Hemoglobin 12.9 g/dL (12.0-16.0); Mean Corpuscular HGB CONC 35.4 g/dL (32.0-36.0); Mean Corpuscular Hemoglobin 33.5 pg (27.0-31.0); Mean Corpuscular Volume 94.5 fl (78.0-98.0); Mean Platelet Volume 8.3 fL (7.4-10.4); Platelet Count 191 10x3/uL (130-400); Red Blood Cell (RBC) Count 3.85 mill/uL (4.20-5.40); White Blood Cell (WBC) Count 8.2 10x3/uL (4.8-10.8)
[2022-02-27 03:23] LABS: Anion Gap 15 mmol/L (10-20); BUN (Urea Nitrogen) 16 mg/dL (9.8-20.1); Calc. Creatinine Clearance 0 mL/min (70-130); Calcium 8.9 mg/dL (7.8-10.44); Carbon Dioxide 22 mmol/L (22-29); Cardiac Risk 4.9 (Less than 4.5); Chloride 100 mmol/L (98-107); Cholesterol 257 mg/dl (< 200 Desired); Estimated GFR 76; Glucose 96 mg/dL (70-105); HDL Cholesterol 52 mg/dL (>60 Neg Risk); LDL Cholesterol, Calculated 180 mg/dL; Potassium 3.3 mmol/L (3.5-5.1); Sodium 134 mmol/L (136-145); Triglycerides 124 mg/dL (Less than 150)
[2022-02-27 03:27] LABS: Troponin I Less than 0.010 ng/mL (< 0.028)
[2022-02-27 03:46] VITALS: BMI 22.1
[2022-02-27 03:48] LABS: Hemoglobin A1c 5.3 % (4.0-6.0)
[2022-02-27] MEDS: Nitroglycerin 0.4 MG TAB (25 Tab Bottle) SL PRN ×6 (04:24→07:55)
[2022-02-27 04:26] LABS: SARS-CoV-2 NAA Rapid Test Not Detected (NotDetected)
[2022-02-27] MEDS: carBAMazepine 200 MG TAB PO SCH ×2 (07:49→17:27)
[2022-02-27] MEDS: cloNIDine 0.1 MG TAB PO SCH ×2 (07:50→20:09)
[2022-02-27] MEDS: Pregabalin 75 MG CAP PO SCH ×2 (07:51→20:09)
[2022-02-27] MEDS: Lisinopril 20 MG TAB PO SCH (07:53)
[2022-02-27] MEDS: Aspirin 81 mg Enteric Coated Tablet PO SCH (07:54)
[2022-02-27 07:57] LABS: Troponin I 0.011 ng/mL (< 0.028)
[2022-02-27] MEDS ORDERED: Potassium Chloride 20 MEQ TAB PO SCH (08:15)
[2022-02-27] MEDS ORDERED: Electrolyte Replacement Protocol 1 EACH FS SCH (08:15)
[2022-02-27] MEDS ORDERED: Enoxaparin Sodium 40 MG/0.4 ML SYRINGE SC SCH (09:00)
[2022-02-27] MEDS ORDERED: Hydrochlorothiazide 25 MG TAB PO SCH (09:00)
[2022-02-27] MEDS ORDERED: Lidocaine 2% Viscous Solution 10 ML, Aluminum & Magnesium Hydroxide 30 ML SSW SCH ×2 (10:45)
[2022-02-27 11:33] LABS: Magnesium 1.8 mg/dL (1.6-2.6)
[2022-02-27 11:39] LABS: Troponin I 0.011 ng/mL (< 0.028)
[2022-02-27] MEDS ORDERED: Iopamidol-370 76% 500 ML 1 ML ONE (11:53)
[2022-02-27] MEDS ORDERED: Magnesium 2 GM/50 ML(in water) 2 GM in Premix Bag 1 BAG IVPB SCH (12:00)
[2022-02-27] MEDS: Ondansetron PF 4 MG/2 ML Vial IVP PRN ×2 (13:16→18:50)
[2022-02-27] MEDS: Cyclobenzaprine 10 MG TAB PO PRN (13:17)
[2022-02-27] MEDS: Lidocaine 5% Patch TD SCH (13:17)
[2022-02-27 17:06] LABS: Troponin I 0.015 ng/mL (< 0.028)
[2022-02-27] MEDS ORDERED: Transdermal Patch Removal TOP SCH (23:00)
[2022-02-28] MEDS: Cyclobenzaprine 10 MG TAB PO PRN (02:54)
[2022-02-28] MEDS: Ondansetron PF 4 MG/2 ML Vial IVP PRN (02:54)
[2022-02-28 04:59] LABS: Potassium 4.1 mmol/L (3.5-5.1)
[2022-02-28] MEDS ORDERED: Hydrochlorothiazide 25 MG TAB PO SCH (09:00)
[2022-02-28] MEDS: Aspirin 81 mg Enteric Coated Tablet PO SCH (11:26)
[2022-02-28] MEDS: cloNIDine 0.1 MG TAB PO SCH (11:26)
[2022-02-28] MEDS: carBAMazepine 200 MG TAB PO SCH (11:26)
[2022-02-28] MEDS: Pregabalin 75 MG CAP PO SCH (11:27)
[2022-02-28] MEDS: Lisinopril 20 MG TAB PO SCH (11:28)
[2022-02-28] MEDS: Lidocaine 5% Patch TD SCH (11:28)
[2022-02-28 11:38] VITALS: BP 194/99; TEMP 98.8
== END 2022-02-28 14:00 | disposition home or self-care (01) ==
LOC: ERS 23:48 → 2NO 02-27 02:23
PROVIDERS: ADMIT Internal Medicine; ATTEND Internal Medicine
DX: R07.89 Other chest pain (principal); I16.0 Hypertensive urgency; I12.9 Hypertensive chronic kidney disease with stage 1 through stage 4 chronic kidney disease, or unspecified chronic kidney disease; N18.2 Chronic kidney disease, stage 2 (mild); G40.909 Epilepsy, unspecified, not intractable, without status epilepticus; F31.9 Bipolar disorder, unspecified; G89.29 Other chronic pain; M54.50 Low back pain, unspecified; E87.1 Hypo-osmolality and hyponatremia; E87.6 Hypokalemia; K21.9 Gastro-esophageal reflux disease without esophagitis; E78.5 Hyperlipidemia, unspecified; F17.210 Nicotine dependence, cigarettes, uncomplicated; R10.13 Epigastric pain; Z79.82 Long term (current) use of aspirin; Z79.899 Other long term (current) drug therapy; Z20.822 Contact with and (suspected) exposure to COVID-19
CPT/HCPCS: 36415; 71045; 74177; 78452; 80048; 80053; 80061; 83036; 83690; 83735; 84132; 84484; 85025; 93005; 93017; 96374; 96375; 96376; A9500; C9113; G0378; J2270; J2405; J3475; Q9967; U0002

== ENCOUNTER 2022-04-27 04:30 | Observation (INO) | payer OTHER ==
[2022-04-27] MEDS ORDERED: hydrALAZINE 20 MG/ML VIAL ONE (04:41)
[2022-04-27] MEDS ORDERED: Nitroglycerin 2% Ointment 1 INCH/1 GM Packet ONE (04:41)
[2022-04-27] MEDS ORDERED: Ipratropium/Albuterol 3 ML NEB ONE (05:02)
[2022-04-27 05:18] LABS: #Basophils 0.1 thou/uL (0.0-0.2); #Eosinphils 0.1 thou/uL (0.0-0.7); #Lymphocytes 1.7 thou/uL (1.20-3.40); #Monocytes 0.5 thou/uL (0.11-0.59); %Basophils 1.5 % (0.0-1.0); %Eosinophils 2.3 % (0.0-10.0); %Monocytes 7.1 % (0.0-10.0); Hemoglobin 12.2 g/dL (12.0-16.0); Mean Corpuscular HGB CONC 32.6 g/dL (32.0-36.0); Mean Corpuscular Hemoglobin 31.3 pg (27.0-31.0); Mean Corpuscular Volume 96.1 fl (78.0-98.0); Mean Platelet Volume 9.3 fL (7.4-10.4); Platelet Count 181 10x3/uL (130-400); RBC Distribution Width 13.1 % (11.5-14.5); White Blood Cell (WBC) Count 6.4 10x3/uL (4.8-10.8)
[2022-04-27 05:39] LABS: ALT (SGPT) 13 U/L (8-55); AST (SGOT) 14 U/L (5-34); Albumin 4.1 g/dL (3.5-5.0); Alkaline Phosphatase 81 U/L (40-110); Anion Gap 9 mmol/L (10-20); BUN (Urea Nitrogen) 15 mg/dL (9.8-20.1); Bilirubin, Total 0.3 mg/dL (0.2-1.2); Calc. Creatinine Clearance 0 mL/min (70-130); Calcium 8.9 mg/dL (7.8-10.44); Carbon Dioxide 25 mmol/L (22-29); Chloride 110 mmol/L (98-107); Estimated GFR 81; Globulin 2.6 g/dL (2.4-3.5); Glucose 103 mg/dL (70-105); Potassium 3.8 mmol/L (3.5-5.1); Protein, Total 6.7 g/dL (6.0-8.3); Sodium 140 mmol/L (136-145)
[2022-04-27] MEDS ORDERED: Ondansetron PF 4 MG/2 ML Vial ONE (05:39)
[2022-04-27 05:42] LABS: Amphetamine Not Detected (NotDetected); Barbiturates Screen Not Detected (NotDetected); Benzodiazepine Screen Not Detected (NotDetected); Cocaine Metabolite Screen Not Detected (NotDetected); Methadone Not Detected (NotDetected); Methamphetamine Not Detected (NotDetected); Opiate Screen Detected (NotDetected); Oxycodone Screen Not Detected (NotDetected); Phencyclidine (PCP) Not Detected (NotDetected); THC/Cannabinoid Screen Detected (NotDetected); Tricyclic Screen Not Detected (NotDetected)
[2022-04-27] MEDS ORDERED: Acetaminophen 500 MG TAB ONE (06:07)
[2022-04-27] MEDS ORDERED: Ketorolac Tromethamine 30 MG/ML VIAL ONE (06:07)
[2022-04-27] MEDS ORDERED: Non-Formulary Item 1 EACH (Ondansetron Hcl [Zofran] 4 MG Tab) PO PRN (07:40)
[2022-04-27] MEDS ORDERED: HYDROcodone/Acetaminophen 10/325 mg Tablet PO PRN ×2 (07:40→07:55)
[2022-04-27] MEDS ORDERED: Ondansetron ODT 4 MG TAB PO PRN ×2 (07:49→07:56)
[2022-04-27] MEDS ORDERED: Ondansetron PF 4 MG/2 ML Vial IVP PRN (07:49)
[2022-04-27] MEDS ORDERED: Acetaminophen 325 MG TAB PO PRN (07:49)
[2022-04-27] MEDS ORDERED: Aspirin 325 MG TAB PO SCH (08:00)
[2022-04-27 08:13] LABS: Troponin I Less than 0.010 ng/mL (< 0.028)
[2022-04-27] MEDS ORDERED: cloNIDine 0.1 MG TAB ONE (08:35)
[2022-04-27] MEDS ORDERED: Metoprolol Tartrate 50 MG TAB ONE (08:35)
[2022-04-27] MEDS ORDERED: Aspirin 325 MG TAB ONE (08:35)
[2022-04-27 08:40] VITALS: BP 169/104
[2022-04-27 08:48] LABS: Magnesium 1.8 mg/dL (1.6-2.6)
[2022-04-27] MEDS ORDERED: Ondansetron ODT 4 MG TAB ONE (08:56)
[2022-04-27] MEDS ORDERED: Metoprolol Tartrate 50 MG TAB PO SCH (09:00)
[2022-04-27] MEDS ORDERED: carBAMazepine 200 MG TAB PO SCH (09:00)
[2022-04-27] MEDS ORDERED: cloNIDine 0.1 MG TAB PO SCH (09:00)
[2022-04-27] MEDS ORDERED: Aspirin Chewable 81 MG TAB PO SCH (09:00)
[2022-04-27] MEDS ORDERED: Hydrochlorothiazide 25 MG TAB PO SCH (09:00)
[2022-04-27] MEDS ORDERED: Non-Formulary Item 1 EACH (Pregabalin [Lyrica] 150 MG Capsule) PO SCH (09:00)
[2022-04-27] MEDS ORDERED: Pregabalin 75 MG CAP PO SCH (09:00)
[2022-04-27 11:26] LABS: Troponin I Less than 0.010 ng/mL (< 0.028)
== END 2022-04-27 14:58 | disposition home or self-care (01) ==
LOC: ERS 04:30 → ERHOLD 06:20
PROVIDERS: ADMIT Student in an Organized Health Care Education/Training Program; ATTEND Student in an Organized Health Care Education/Training Program
DX: R07.2 Precordial pain (principal); I10 Essential (primary) hypertension; G40.909 Epilepsy, unspecified, not intractable, without status epilepticus; G89.29 Other chronic pain; M54.9 Dorsalgia, unspecified; F17.210 Nicotine dependence, cigarettes, uncomplicated; Z79.82 Long term (current) use of aspirin; Z79.899 Other long term (current) drug therapy; Z20.822 Contact with and (suspected) exposure to COVID-19
CPT/HCPCS: 36415; 70450; 80053; 80306; 83735; 83880; 84443; 84484; 85025; 93005; 94640; 96374; 96375; G0378; J0360; J1885; J2405; J7620; Q0162; U0003; U0005

== ENCOUNTER 2022-12-13 20:54 | Emergency (ER) | payer OTHER, SELFPAY ==
[2022-12-13 22:09] LABS: #Basophils 0.1 thou/uL (0.0-0.2); #Eosinphils 0.1 thou/uL (0.0-0.7); #Monocytes 0.5 thou/uL (0.11-0.59); %Basophils 1.4 % (0.0-1.0); %Eosinophils 2.1 % (0.0-10.0); %Lymphocytes 49.1 % (21.0-51.0); %Monocytes 9.2 % (0.0-10.0); Hematocrit 36.4 % (36.0-47.0); Mean Corpuscular Hemoglobin 30.5 pg (27.0-31.0); Mean Corpuscular Volume 92.6 fl (78.0-98.0); Platelet Count 245 10x3/uL (130-400); RBC Distribution Width 14.1 % (11.5-14.5); Red Blood Cell (RBC) Count 3.93 mill/uL (4.20-5.40); White Blood Cell (WBC) Count 5.1 10x3/uL (4.8-10.8)
[2022-12-13 22:43] LABS: Troponin I Less than 0.010 ng/mL (< 0.028)
[2022-12-13 22:52] LABS: Bacteria/HPF None Seen HPF (None Seen); Bilirubin Negative (Negative); Blood, Urine Negative (Negative); CAUTI Indications for Culture Dysuria,urgency,freq; Clarity Clear (Clear); Glucose, Urine (Dipstick) Normal (Negative); Ketone, Urine Negative (Negative); Leukocyte Negative Leu/uL (Negative); Nitrite Negative (Negative); Protein, Urine (Dipstick) Negative (Neg-Trace); RBC/HPF None Seen HPF (0-3); Specific Gravity, Urine 1.012 (1.002-1.036); Squamous Epithelial 0-3 HPF (0-3); Urobilinogen Normal mg/dL (Less than 2); WBC/HPF 0-3 HPF (0-3)
[2022-12-13 22:54] LABS: Urine Culture Reflex No No
[2022-12-13] MEDS ORDERED: Ketorolac Tromethamine 30 MG/ML VIAL ONE (23:05)
[2022-12-13] MEDS ORDERED: Morphine 4 MG/ML VIAL ONE (23:05)
[2022-12-13 23:06] LABS: ALT (SGPT) 13 U/L (8-55); AST (SGOT) 25 U/L (5-34); Albumin 4.2 g/dL (3.5-5.0); Alkaline Phosphatase 70 U/L (40-110); Anion Gap 13 mmol/L (10-20); BUN (Urea Nitrogen) 30 mg/dL (9.8-20.1); Bilirubin, Total Less than 0.2 mg/dL (0.2-1.2); Calc. Creatinine Clearance 0 mL/min (70-130); Calcium 8.6 mg/dL (7.8-10.44); Carbon Dioxide 21 mmol/L (22-29); Chloride 107 mmol/L (98-107); Estimated GFR 39; Globulin 2.7 g/dL (2.4-3.5); Glucose 89 mg/dL (70-105); Lipase 33 U/L (8-78); Potassium 5.4 mmol/L (3.5-5.1); Protein, Total 6.9 g/dL (6.0-8.3); Sodium 136 mmol/L (136-145)
[2022-12-14 01:35] LABS: Anion Gap 11 mmol/L (10-20); BUN (Urea Nitrogen) 24 mg/dL (9.8-20.1); Calc. Creatinine Clearance 0 mL/min (70-130); Calcium 8.4 mg/dL (7.8-10.44); Carbon Dioxide 24 mmol/L (22-29); Chloride 109 mmol/L (98-107); Estimated GFR 53; Glucose 100 mg/dL (70-105); Potassium 4.1 mmol/L (3.5-5.1); Sodium 140 mmol/L (136-145)
== END 2022-12-14 01:58 | disposition home or self-care (01) ==
LOC: ERS 20:54
DX: R10.9 Unspecified abdominal pain (principal); I10 Essential (primary) hypertension; F17.210 Nicotine dependence, cigarettes, uncomplicated; Z79.899 Other long term (current) drug therapy; Z79.01 Long term (current) use of anticoagulants
CPT/HCPCS: 36415; 71045; 74177; 80048; 80053; 81001; 83690; 84484; 85025; 93005; 96361; 96374; 96375; J1885; J2270

== ENCOUNTER 2023-05-27 17:59 | Inpatient (IN) | payer OTHER ==
[~2023-05-27 17:59] MED LIST changes: -Iopamidol-370 76% 500 ML 1 ML ONE; +Iopamidol-370 76% 500 ML MDV (1 ML CHARGE) ONE
[2023-05-27] MEDS ORDERED: Ondansetron PF 4 MG/2 ML Vial ONE ×2 (18:24→20:53)
[2023-05-27] MEDS ORDERED: Morphine 4 MG/ML VIAL ONE ×2 (18:24→19:53)
[2023-05-27 18:35] LABS: Hematocrit 35.1 % (36.0-47.0); Hemoglobin 11.1 g/dL (12.0-16.0); Mean Corpuscular HGB CONC 31.6 g/dL (32.0-36.0); Mean Corpuscular Hemoglobin 28.2 pg (27.0-31.0); Mean Corpuscular Volume 89.1 fL (78.0-98.0); Platelet Count 460 10x3/uL (130-400); RBC Distribution Width 15.9 % (11.5-14.5); Red Blood Cell (RBC) Count 3.94 mill/uL (4.20-5.40)
[2023-05-27 18:53] LABS: ALT (SGPT) 7 U/L (8-55); AST (SGOT) 12 U/L (5-34); Alkaline Phosphatase 103 U/L (40-110); Anion Gap 16 mmol/L (10-20); BUN (Urea Nitrogen) 29 mg/dL (9.8-20.1); Bilirubin, Total 0.2 mg/dL (0.2-1.2); Calc. Creatinine Clearance 0 mL/min (70-130); Calcium 8.9 mg/dL (7.8-10.44); Carbon Dioxide 22 mmol/L (22-29); Chloride 102 mmol/L (98-107); Estimated GFR 40; Globulin 3.2 g/dL (2.4-3.5); Glucose 141 mg/dL (70-105); Lipase 23 U/L (8-78); Potassium 4.4 mmol/L (3.5-5.1); Protein, Total 7.2 g/dL (6.0-8.3); Sodium 136 mmol/L (136-145)
[2023-05-27 18:55] LABS: Anisocytosis SLIGHT = 6-15 cells HPF (0-5); Band 25 % (5-11); Eosinophils 2 % (0-10); Large Platelets 21.2 % (0-5); Lymphocytes 19 % (21-51); Monocytes 3 % (0-10); Neutrophil 49 % (42-75); Ovalocytes SLIGHT = 2-5 cells HPF (0-1); Platelet Adequacy Comment Platelets Increased; Poikilocytosis SLIGHT = 6-15 cells HPF (0-5); Reactive Lymphocytes 2 % (0-10)
[2023-05-27 18:57] LABS: Troponin I 0.019 ng/mL (< 0.028)
[2023-05-27 19:17] LABS: INR-International Normal Ratio 0.9; Prothrombin Time 12.5 sec (12.0-14.7)
[2023-05-27 19:18] LABS: PTT 31.5 sec (22.9-36.1)
[2023-05-27] MEDS ORDERED: Piperacillin/Tazobactam 4.5 GM VIAL ONE (19:20)
[2023-05-27] MEDS ORDERED: Sodium Chloride 0.9% 100 ML ONE (19:20)
[2023-05-27] MEDS ORDERED: metroNIDAZOLE 500 MG (100 mL) BAG ONE (20:11)
[2023-05-27] MEDS ORDERED: Lidocaine 1% PF 5 ML VIAL ONE (20:53)
[2023-05-27] MEDS ORDERED: Fentanyl 250 MCG/5 ML VIAL ONE (20:53)
[2023-05-27] MEDS ORDERED: PROPOFOL 20 ML ONE (20:53)
[2023-05-27] MEDS ORDERED: Midazolam HCl 2 mg/2 ml Vial ONE (20:53)
[2023-05-27] MEDS ORDERED: Dexamethasone 20 MG/5 ML VIAL ONE (20:53)
[2023-05-27] MEDS ORDERED: Rocuronium Bromide 10 MG/ML (10ML VIAL) ONE (20:53)
[2023-05-27] MEDS ORDERED: Etomidate 40 MG (20 mL) VIAL ONE (21:35)
[2023-05-27] MEDS ORDERED: Nitroglycerin 2% Ointment 1 INCH/1 GM Packet ONE (21:40)
[2023-05-27] MEDS ORDERED: PHENYLEPHRINE-NS 100 MCG/ML 10 ML SYRINGE ONE (22:23)
[2023-05-27] MEDS ORDERED: MINERAL OIL/WHITE PETROLATUM 3.5 GM TUBE ONE (22:41)
[2023-05-27] MEDS ORDERED: Labetalol HCl 100 MG/20 ML VIAL ONE (22:43)
[2023-05-27] MEDS ORDERED: SUGAMMADEX SODIUM 200 MG/2 ML VIAL ONE (22:44)
[2023-05-27] MEDS ORDERED: Pantoprazole 80 MG in Sodium Chloride 0.9% 100 ML IVPB SCH (23:00)
[2023-05-27] MEDS ORDERED: Ondansetron PF 4 MG/2 ML Vial IVP PRN (23:03)
[2023-05-27] MEDS ORDERED: PACU-Morphine 4MG/ML VIAL SLOW IVP PRN (23:07)
[2023-05-27] MEDS ORDERED: FENTANYL 500 MCG/10 ML VIAL 2,000 MCG in Sodium Chloride 0.9% 60 ML IV PRN (23:07)
[2023-05-27] MEDS ORDERED: diphenhydrAMINE 50 MG/ML VIAL IM PRN (23:07)
[2023-05-27] MEDS ORDERED: Promethazine HCl 25 MG/ML VIAL IM PRN ×2 (23:07)
[2023-05-27] MEDS ORDERED: Ondansetron HCl/PF 4 MG/2 ML Vial IVP PRN (23:07)
[2023-05-27] MEDS ORDERED: diphenhydrAMINE 50 MG/ML VIAL IVP PRN (23:07)
[2023-05-27] MEDS ORDERED: Naloxone HCl 0.4 mg/ml Vial IV PRN (23:07)
[2023-05-27] MEDS ORDERED: HYDROmorphone 2 MG/ML VIAL SLOW IVP PRN (23:07)
[2023-05-27] MEDS ORDERED: Morphine Sulfate 2 MG/ML SYRINGE SLOW IVP PRN (23:07)
[2023-05-27] MEDS ORDERED: fentaNYL 50 mcg/mL 1 mL Vial ONE (23:14)
[2023-05-27] MEDS ORDERED: Fentanyl CADD 100 ML IVPB SCH (23:15)
[2023-05-27] MEDS ORDERED: Communication Order-Pharmacy FS SCH (23:15)
[2023-05-27] MEDS ORDERED: Enoxaparin 40 MG (0.4 mL) SYRINGE SC SCH (23:30)
[2023-05-27] MEDS ORDERED: Piperacillin/Tazobactam 3.375 GM in Sodium Chloride 0.9% 100 ML IVPB SCH (23:59)
[2023-05-28 00:40] LABS: Troponin I 0.011 ng/mL (< 0.028)
[2023-05-28 01:32] VITALS: BMI 24.5
[2023-05-28] MEDS: Piperacillin/Tazobactam 3.375 GM in Sodium Chloride 0.9% 100 ML IVPB SCH (01:53)
[2023-05-28] MEDS: Pantoprazole 80 MG, Admixture Fee 1 EACH in Sodium Chloride 0.9% 100 ML IVPB SCH (01:54)
[2023-05-28] MEDS: Sodium Chloride 0.9% 1,000 ML IV SCH (02:05)
[2023-05-28 05:44] LABS: Hematocrit 32.5 % (36.0-47.0); Hemoglobin 10.2 g/dL (12.0-16.0); Mean Corpuscular HGB CONC 31.4 g/dL (32.0-36.0); Mean Corpuscular Hemoglobin 27.9 pg (27.0-31.0); Platelet Count 383 10x3/uL (130-400); RBC Distribution Width 15.9 % (11.5-14.5); Red Blood Cell (RBC) Count 3.65 mill/uL (4.20-5.40)
[2023-05-28 05:58] LABS: Anion Gap 13 mmol/L (10-20); BUN (Urea Nitrogen) 21 mg/dL (9.8-20.1); Calc. Creatinine Clearance 62 mL/min (70-130); Calcium 8.1 mg/dL (7.8-10.44); Carbon Dioxide 22 mmol/L (22-29); Chloride 108 mmol/L (98-107); Estimated GFR 63; Glucose 109 mg/dL (70-105); Potassium 3.8 mmol/L (3.5-5.1); Sodium 139 mmol/L (136-145)
[2023-05-28 06:18] LABS: Band 50 % (5-11); Hypochromia SLIGHT = 6-15 cells HPF (0-5); Large Platelets 41.8 % (0-5); Lymphocytes 14 % (21-51); Monocytes 3 % (0-10); Neutrophil 33 % (42-75); Platelet Adequacy Comment Platelets Normal; Polychromasia SLIGHT = 2-3 cells HPF (0-2); Smudge Cells 10.2 %
[2023-05-28] MEDS: Enoxaparin 40 MG (0.4 mL) SYRINGE SC SCH (22:00)
[2023-05-29] MEDS: cloNIDine 0.1 MG TAB PO SCH ×2 (03:52→09:03)
[2023-05-29] MEDS: HYDROcodone/Acetaminophen 10/325 mg Tablet PO PRN (03:52)
[2023-05-29] MEDS: Metoprolol Tartrate 50 MG TAB PO SCH ×2 (03:52→09:03)
[2023-05-29] MEDS: Benzocaine/Menthol 1 LOZ LOZ PO PRN (04:10)
[2023-05-29 08:21] LABS: #Basophils 0.03 10x3/uL (0.0-0.2); %Basophils 0.3 % (0.0-1.0); %Eosinophils 0.3 % (0.0-10.0); %Lymphocytes 8.8 % (21.0-51.0); %Monocytes 4.1 % (0.0-10.0); %Neutrophils 86.1 % (42.0-75.0); Hematocrit 30.8 % (36.0-47.0); Hemoglobin 9.6 g/dL (12.0-16.0); Mean Corpuscular HGB CONC 31.2 g/dL (32.0-36.0); Mean Corpuscular Hemoglobin 28.2 pg (27.0-31.0); Mean Corpuscular Volume 90.6 fL (78.0-98.0); Mean Platelet Volume 9.7 fL (7.4-10.4); Platelet Count 448 10x3/uL (130-400); RBC Distribution Width 16.4 % (11.5-14.5)
[2023-05-29 08:38] LABS: Anion Gap 14 mmol/L (10-20); BUN (Urea Nitrogen) 12 mg/dL (9.8-20.1); Calc. Creatinine Clearance 77 mL/min (70-130); Carbon Dioxide 21 mmol/L (22-29); Chloride 108 mmol/L (98-107); Estimated GFR 82; Glucose 104 mg/dL (70-105); Potassium 3.7 mmol/L (3.5-5.1); Sodium 139 mmol/L (136-145)
[2023-05-29] MEDS ORDERED: cloNIDine 0.1 MG TAB PO SCH (09:00)
[2023-05-29] MEDS: Hydrochlorothiazide 25 MG TAB PO SCH (09:03)
[2023-05-29] MEDS: Lorazepam 1 MG TAB PO PRN (09:08)
[2023-05-29] MEDS: hydrALAZINE 20 MG/ML VIAL SLOW IVP PRN (11:45)
[2023-05-29] MEDS: QUEtiapine 25 MG TAB PO SCH (21:04)
[2023-05-30 05:44] LABS: #Basophils 0.07 10x3/uL (0.0-0.2); %Basophils 0.5 % (0.0-1.0); %Eosinophils 2.4 % (0.0-10.0); %Lymphocytes 13.5 % (21.0-51.0); %Monocytes 4.9 % (0.0-10.0); %Neutrophils 78.1 % (42.0-75.0); Hematocrit 31.2 % (36.0-47.0); Hemoglobin 9.9 g/dL (12.0-16.0); Mean Corpuscular HGB CONC 31.7 g/dL (32.0-36.0); Mean Corpuscular Hemoglobin 28.4 pg (27.0-31.0); Mean Corpuscular Volume 89.7 fL (78.0-98.0); Mean Platelet Volume 10.1 fL (7.4-10.4); Platelet Count 525 10x3/uL (130-400); RBC Distribution Width 16.3 % (11.5-14.5); Red Blood Cell (RBC) Count 3.48 mill/uL (4.20-5.40)
[2023-05-30 05:56] LABS: Anion Gap 15 mmol/L (10-20); BUN (Urea Nitrogen) 11 mg/dL (9.8-20.1); Calc. Creatinine Clearance 78 mL/min (70-130); Calcium 9.4 mg/dL (7.8-10.44); Carbon Dioxide 22 mmol/L (22-29); Chloride 106 mmol/L (98-107); Estimated GFR 85; Glucose 93 mg/dL (70-105); Potassium 3.3 mmol/L (3.5-5.1); Sodium 140 mmol/L (136-145)
[2023-05-30] MEDS: Ondansetron PF 4 MG/2 ML Vial IVP PRN (05:56)
[2023-05-30] MEDS: DULoxetine 30 MG CAP PO SCH (09:36)
[2023-05-30] MEDS: carBAMazepine 200 MG TAB PO SCH (09:36)
[2023-05-30] MEDS: Pantoprazole 40 MG VIAL IVP SCH (09:42)
[2023-05-30] MEDS: Potassium Chloride 20 MEQ in Premix 1 BAG IVPB SCH ×2 (10:01→20:19)
[2023-05-30] MEDS ORDERED: MD-Gastroview 120 ML BOT ONE (10:13)
[2023-05-30] MEDS: hydrALAZINE 20 MG/ML VIAL SLOW IVP SCH (17:22)
[2023-05-30] MEDS: Labetalol HCl 100 MG/20 ML VIAL SLOW IVP PRN (19:28)
[2023-05-30] MEDS: Nicotine 7 MG PATCH TD SCH (19:37)
[2023-05-30] MEDS ORDERED: Non-Formulary Item 1 EACH (Quetiapine Fumarate [Seroquel] 50 MG Tablet) PO SCH (21:00)
[2023-05-30] MEDS: Enalaprilat Dihydrate 1.25 MG/ML VIAL SLOW IVP SCH (23:28)
[2023-05-31] MEDS: Morphine 4 MG/ML VIAL SLOW IVP PRN (00:32)
[2023-05-31 06:25] LABS: #Basophils 0.05 10x3/uL (0.0-0.2); %Basophils 0.5 % (0.0-1.0); %Eosinophils 2.2 % (0.0-10.0); %Lymphocytes 14.9 % (21.0-51.0); %Monocytes 6.4 % (0.0-10.0); %Neutrophils 75.6 % (42.0-75.0); Hematocrit 28.1 % (36.0-47.0); Hemoglobin 9.1 g/dL (12.0-16.0); Mean Corpuscular HGB CONC 32.4 g/dL (32.0-36.0); Mean Corpuscular Hemoglobin 28.5 pg (27.0-31.0); Mean Corpuscular Volume 88.1 fL (78.0-98.0); Mean Platelet Volume 9.7 fL (7.4-10.4); Platelet Count 577 10x3/uL (130-400); RBC Distribution Width 16.2 % (11.5-14.5); Red Blood Cell (RBC) Count 3.19 mill/uL (4.20-5.40)
[2023-05-31 06:44] LABS: Anion Gap 12 mmol/L (10-20); BUN (Urea Nitrogen) 14 mg/dL (9.8-20.1); Calc. Creatinine Clearance 79 mL/min (70-130); Calcium 8.5 mg/dL (7.8-10.44); Carbon Dioxide 23 mmol/L (22-29); Chloride 109 mmol/L (98-107); Estimated GFR 86; Glucose 91 mg/dL (70-105); Magnesium 1.5 mg/dL (1.6-2.6); Potassium 3.5 mmol/L (3.5-5.1); Sodium 140 mmol/L (136-145)
[2023-05-31] MEDS ORDERED: Lorazepam 2 MG/ML VIAL SLOW IVP PRN (07:23)
[2023-05-31] MEDS ORDERED: Electrolyte Replacement Protocol 1 EACH FS SCH (07:30)
[2023-05-31] MEDS ORDERED: Electrolyte Replacement Protocol FS PRN (07:30)
[2023-05-31] MEDS ORDERED: Magnesium 2 GM/50 ML(in water) 2 GM in Premix 1 BAG IVPB SCH (07:30)
[2023-05-31 08:21] LABS: Carbamazepine-Tegretol 5.8 ug/mL (4.0-12.0)
[2023-05-31] MEDS: Magnesium 2 GM/50 ML(in water) 2 GM in Premix 1 BAG IVPB SCH (08:21)
[2023-05-31] MEDS: Potassium Chloride 20 MEQ TAB PO SCH (08:22)
[2023-05-31] MEDS: Hydrochlorothiazide 25 MG TAB PO SCH (08:22)
[2023-05-31] MEDS: Valsartan 80 MG TAB PO SCH (08:23)
[2023-05-31 13:41] LABS: Potassium 4.1 mmol/L (3.5-5.1)
[2023-05-31] MEDS: diphenhydrAMINE 25 MG CAP PO PRN (18:07)
[2023-06-01 05:27] LABS: Anion Gap 15 mmol/L (10-20); BUN (Urea Nitrogen) 8 mg/dL (9.8-20.1); Calc. Creatinine Clearance 84 mL/min (70-130); Calcium 9.2 mg/dL (7.8-10.44); Carbon Dioxide 23 mmol/L (22-29); Chloride 104 mmol/L (98-107); Estimated GFR 91; Glucose 84 mg/dL (70-105); Magnesium 1.7 mg/dL (1.6-2.6); Potassium 3.6 mmol/L (3.5-5.1); Sodium 138 mmol/L (136-145)
[2023-06-01] MEDS: traMADol HCl 50 MG TAB PO PRN (08:00)
[2023-06-01] MEDS: Valsartan 80 MG TAB PO SCH (08:20)
[2023-06-01] MEDS: Chlorthalidone 25 MG TAB PO SCH (08:20)
[2023-06-01] MEDS: Acetaminophen 500 MG TAB PO SCH (08:23)
[2023-06-01] MEDS: Magnesium 2 GM/50 ML(in water) 2 GM in Premix 1 BAG IVPB SCH (09:28)
[2023-06-01] MEDS: Ondansetron PF 4 MG/2 ML Vial IVP PRN (18:11)
[2023-06-03 12:29] VITALS: BP 158/98; TEMP 98
== END 2023-06-03 14:53 | disposition home or self-care (01) | DRG 326 ==
LOC: ERS 17:59 → SDC/OP 21:26 → 2NO 21:27 → SURG A 06-01 10:12
PROVIDERS: ADMIT Student in an Organized Health Care Education/Training Program; ATTEND Student in an Organized Health Care Education/Training Program
PROC: 0DU707Z Supplement Stomach, Pylorus with Autologous Tissue Substitute, Open Approach (ICD-10-PCS; principal; 2023-05-27)
PROC: 0DB60ZX Excision of Stomach, Open Approach, Diagnostic (ICD-10-PCS; 2023-05-27)
DX: K27.5 Chronic or unspecified peptic ulcer, site unspecified, with perforation (principal); K65.9 Peritonitis, unspecified; Z79.899 Other long term (current) drug therapy; I10 Essential (primary) hypertension; F41.9 Anxiety disorder, unspecified; F17.290 Nicotine dependence, other tobacco product, uncomplicated; G40.909 Epilepsy, unspecified, not intractable, without status epilepticus; Z98.51 Tubal ligation status; E78.5 Hyperlipidemia, unspecified; F31.9 Bipolar disorder, unspecified; I16.0 Hypertensive urgency
CPT/HCPCS: 36415; 36416; 71045; 74019; 74177; 74240; 80048; 80053; 80156; 83605; 83690; 83735; 84100; 84145; 84443; 84484; 85025; 85610; 85730; 86850; 86900; 86901; 87040; 88305; 88341; 88342; 93005; 93010; A4314; C9113; J0360; J1100; J1650; J2250; J2270; J2405; J2543; J2704; J3010; J3475; J3480; J3490; J7050; Q9963; Q9967